=== PATIENT | male | born 1990 | race Caucasian/White ===

== ENCOUNTER 2021-07-09 17:57 | Emergency (ER) | payer OTHER ==
[~2021-07-09] VITALS: Ht 180.3 cm; Wt 88.0 kg
[2021-07-09 17:57] VITALS: BP 142/82
[2021-07-09 18:41] VITALS: O2SAT 99
[2021-07-09 19:27] LABS: RSV AMPLIFICATION NEGATIVE (NEGATIVE)
== END 2021-07-09 19:44 | disposition home or self-care (01) ==
LOC: M ED 17:57
DX: R50.9 Fever, unspecified (principal); R05.9 Cough, unspecified; J02.9 Acute pharyngitis, unspecified; Z20.822 Contact with and (suspected) exposure to COVID-19